=== PATIENT | female | born 1975 | race Caucasian/White ===

== ENCOUNTER 2017-03-16 15:42 | Emergency (ER) | payer MEDICAID ==
[~2017-03-16] VITALS: Ht 162.6 cm; Wt 183.0 kg
[2017-03-16] MEDS ORDERED: OMEPRAZOLE20 MG PO (16:01)
[2017-03-16] MEDS ORDERED: FOLIC ACID1 MG PO (16:02)
[2017-03-16] MEDS ORDERED: HYDRALAZINE HCL50 MG PO (16:02)
[2017-03-16] MEDS ORDERED: CHLORDIAZEPOXID25 MG PO (16:03)
[2017-03-16] MEDS ORDERED: VOLTAREN100 GM TOP (18:05)
== END 2017-03-16 19:25 | disposition home or self-care (01) ==
LOC: ED 15:42
DX: M54.5 Low back pain (principal); R10.9 Unspecified abdominal pain; G89.29 Other chronic pain; F10.10 Alcohol abuse, uncomplicated; Z88.8 Allergy status to other drugs, medicaments and biological substances; Z79.899 Other long term (current) drug therapy
CPT/HCPCS: 74177; 80053; 81001; 83690; 85025; 96374; 96375; 99284; J1885; J2405; Q9967